=== PATIENT | male | born 1945 | race Caucasian/White ===

== ENCOUNTER → 2017-06-27 | Outpatient (CLI) | payer OTHER | LOC: FIMAGING 09:32 | PROVIDERS: ATTEND Internal Medicine | DX: R07.2 Precordial pain (principal); K44.9 Diaphragmatic hernia without obstruction or gangrene ==

== ENCOUNTER → 2018-08-16 | Outpatient (CLI) | payer OTHER | LOC: FIMAGING 10:56 | PROVIDERS: ATTEND Internal Medicine | DX: M51.36 Other intervertebral disc degeneration, lumbar region (principal) ==

== ENCOUNTER → 2018-08-23 | Outpatient (CLI) | payer OTHER | LOC: FIMAGING 11:44 | PROVIDERS: ATTEND Internal Medicine | DX: M48.061 Spinal stenosis, lumbar region without neurogenic claudication (principal); M43.16 Spondylolisthesis, lumbar region; M12.88 Other specific arthropathies, not elsewhere classified, other specified site; M51.36 Other intervertebral disc degeneration, lumbar region ==

== ENCOUNTER → 2018-09-13 | Outpatient (CLI) | payer OTHER | LOC: FIMAGING 11:57 | PROVIDERS: ATTEND Neurological Surgery | DX: M54.16 Radiculopathy, lumbar region (principal); M43.16 Spondylolisthesis, lumbar region; M51.27 Other intervertebral disc displacement, lumbosacral region; M51.36 Other intervertebral disc degeneration, lumbar region ==